=== PATIENT | female | born 1985 | race Caucasian/White ===

== ENCOUNTER → 2016-08-28 | Outpatient (CLI) | payer BC ==
--- NOTE | 2016-08-28 16:35 | FL ---
Hysterosalpingogram INDICATION: Infertility The procedure was explained to the patient, the risks complications benefits. All questions were answ ered. Written and verbal informed consent were obtained. Patient was placed on the fluoroscopy table in supine view. Speculum was placed. The vaginal vault was cleansed with Betadine. The catheter was placed through th e cervical os without difficulty. The balloon was inflated. Under fluoroscopic observation contrast w as administered. Multiple images were obtained. The catheter was withdrawn. Speculum was removed. The patient was placed in the prone view for single additional image. Discharge instructions were discussed with the patient. Patient will follow-up with her physician. Nikhil arthur tolerated procedure very well. FINDINGS: Fallopian tubes fill immediately with little resistance. There is free spill identified on the right with free spill also evident on the left a few seconds later. No loculated contrast is evid ent. The morphology of the uterus appears normal. Cervical canal appears normal. IMPRESSIONS: 1. Normal-appearing hysterosalpingogram.
== END | disposition home or self-care (01) ==
LOC: RADFLWHC 14:38
PROVIDERS: ATTEND Obstetrics & Gynecology
DX: N97.9 Female infertility, unspecified (principal)
CPT/HCPCS: 58340; 74740; Q9965

== ENCOUNTER → 2016-10-14 | Outpatient (CLI) | payer BC ==
[2016-10-14 13:29] LABS: Hepatitis B Surface Ag Index 0.08
[2016-10-14 13:46] LABS: Hepatitis C Virus IgG Index 0.01
[2016-10-14 13:49] LABS: Hepatitis C Virus IgG Ab Negative (Negative)
[2016-10-14 14:15] LABS: Follicle Stimulating Hormone 7.5 mIU/mL; Prolactin 11.4 ng/mL (3.0-18.6)
[2016-10-15 07:06] LABS: HIV-1/HIV-2 Ab Screen NONREAC (NON REAC)
[2016-10-16 05:54] LABS: Anti-Mullerian Hormone 2.28 ng/mL (<9.24)
[2016-10-19 11:28] LABS: Mis test requested (Blood) Act.Protein C Resist
== END | disposition home or self-care (01) ==
LOC: LABWHC1 12:01
PROVIDERS: ATTEND Obstetrics & Gynecology Reproductive Endocrinology
DX: Z31.49 Encounter for other procreative investigation and testing (principal)
CPT/HCPCS: 36415; 83001; 83002; 83520; 84146; 85307; 86762; 86780; 86803; 86850; 86900; 86901; 87340; 87389

== ENCOUNTER → 2020-04-03 | Outpatient (CLI) | payer BC ==
[2020-04-04 06:02] LABS: Luteinizing Hormone 10.2 mIU/mL; Prolactin 4.7 ng/mL (2.8-29.2)
[2020-04-04 06:03] LABS: Follicle Stimulating Hormone 12.2 mIU/mL
== END | disposition home or self-care (01) ==
LOC: LABMAIN 19:22
PROVIDERS: ATTEND Obstetrics & Gynecology Reproductive Endocrinology
DX: Z13.29 Encounter for screening for other suspected endocrine disorder (principal); Z13.21 Encounter for screening for nutritional disorder; N97.9 Female infertility, unspecified
CPT/HCPCS: 36415; 82306; 83001; 83002; 84146; 84443

== ENCOUNTER → 2020-07-20 | Outpatient (CLI) | payer BC | END | disposition home or self-care (01) | LOC: LABMAIN 01:22 | PROVIDERS: ATTEND Emergency Medicine | DX: Z53.9 Procedure and treatment not carried out, unspecified reason (principal) ==

== ENCOUNTER → 2020-08-16 | Outpatient (CLI) | payer BC ==
[2020-08-16 13:59] LABS: Follicle Stimulating Hormone 13.5 mIU/mL
== END | disposition home or self-care (01) ==
LOC: LABMAIN 02:02
DX: N97.9 Female infertility, unspecified (principal); Z13.29 Encounter for screening for other suspected endocrine disorder; Z13.21 Encounter for screening for nutritional disorder
CPT/HCPCS: 36415; 82306; 83001; 83002; 84443

== ENCOUNTER → 2021-03-11 | Outpatient (CLI) | payer BC | END | disposition home or self-care (01) | LOC: LABMAIN 04:28 | PROVIDERS: ATTEND Emergency Medicine | DX: Z20.822 Contact with and (suspected) exposure to COVID-19 (principal) | CPT/HCPCS: 87635 ==

== ENCOUNTER → 2021-06-24 | Outpatient (CLI) | payer BC | END | disposition home or self-care (01) | LOC: LABMAIN 06:11 | PROVIDERS: ATTEND Emergency Medicine | DX: Z20.822 Contact with and (suspected) exposure to COVID-19 (principal) | CPT/HCPCS: 87635 ==

== ENCOUNTER → 2021-06-29 | Outpatient (CLI) | payer BC, OTHER | END | disposition home or self-care (01) | LOC: LABWHC1 10:14 | PROVIDERS: ATTEND Emergency Medicine | DX: U07.1 COVID-19 (principal) | CPT/HCPCS: 87635 ==

== ENCOUNTER 2021-06-30 08:26 | Emergency (ER) | payer BC, OTHER ==
--- NOTE | 2021-06-30 08:36 | ED ---
URI HPI - General Chief Complaint: Upper Respiratory Infection Stated Complaint: covid+, wants infusion Time Seen by Provider: 06/30/21 08:30 Source: patient, RN notes reviewed Mode of arrival: ambulatory Limitations: no limitations - History of Present Illness Initial Comments: 36-year-old female presented from chief complaint covid 19 positive. Patient is an employee here and tested positive yesterday. Symptoms started around the seventh. Patient states that she has had some body aches, mild cough congestion no fever no chest pain or shortness of breath otherwise. Patient offers no complaints. - Related Data Allergies Allergy/AdvReac Type Severity Reaction Status Date / Time Penicillins Allergy Unknown Verified 06/30/21 08:27 Childhood Review of Systems ROS Statement: Those systems with pertinent positive or pertinent negative responses have been documented in the HPI. ROS Other: All systems not noted in ROS Statement are negative. Past Medical History Past Medical History: No Reported History History of Any Multi-Drug Resistant Organisms: None Reported Past Surgical History: No Surgical Hx Reported Additional Past Surgical History / Comment(s): laproscopic Past Psychological History: No Psychological Hx Reported Smoking Status: Former smoker Past Alcohol Use History: Occasional Past Drug Use History: None Reported General Exam Limitations: no limitations General appearance: alert, in no apparent distress Head exam: Present: atraumatic, normocephalic, normal inspection Eye exam: Present: normal appearance, PERRL, EOMI. Absent: scleral icterus, conjunctival injection, periorbital swelling ENT exam: Present: normal exam, normal oropharynx, mucous membranes moist Neck exam: Present: normal inspection, full ROM. Absent: tenderness, meningismus, lymphadenopathy Respiratory exam: Present: normal lung sounds bilaterally. Absent: respiratory distress, wheezes, rales, rhonchi, stridor Cardiovascular Exam: Present: regular rate, normal rhythm, normal heart sounds. Absent: systolic murmur, diastolic murmur, rubs, gallop, clicks Course Vital Signs 06/30/21 08:27 Temperature 98 F Pulse Rate 85 Respiratory 18 Rate Blood Pressure 120/73 O2 Sat by Pulse 98 Oximetry Medical Decision Making - Medical Decision Making Patient will receive monoclonal antibodies be discharged in stable condition. Disposition Clinical Impression: COVID-19 Disposition: HOME SELF-CARE Condition: Stable Instructions (If sedation given, give patient instructions): Coronavirus Disease 2019 (COVID-19) Additional Instructions: Please return to the Emergency Department if symptoms worsen or any other concerns. Is patient prescribed a controlled substance at d/c from ED?: No Referrals: Marie Callahan MD [Primary Care Provider] - 1-2 days Time of Disposition: 08:36
[2021-06-30] MEDS ORDERED: SODIUM CHLORIDE 0.9% 50 ML IVPB ONE (08:45)
[2021-06-30] MEDS ORDERED: BAMLANIVIMAB (EUA) 700 MG, ETESEVIMAB (EUA) 1,400 MG in SODIUM CHLORIDE 0.9% 50 ML IVPB ONE ×2 (09:00→09:30)
[2021-06-30 09:08] VITALS: RESP 16
[2021-06-30] MEDS ORDERED: SODIUM CHLORIDE 0.9% 500 ML 500 ML in EMPTY BAG 1 BAG IV PRN (09:21)
[2021-06-30] MEDS ORDERED: diphenhydrAMINE 50 MG/ML 1 ML VIAL IVP STA (09:32)
[2021-06-30] MEDS ORDERED: methylPREDNISolone SOD SUCCI 125 MG/2 ML VIAL IV STA (09:33)
[2021-06-30] MEDS ORDERED: ONDANSETRON 4 MG/2 ML VIAL IVP STA (09:39)
[2021-06-30 10:37] VITALS: BP 134/88; PULSE 66; TEMP 98
== END 2021-06-30 10:00 ==
LOC: EC 08:26 → PROCWHC3 08:26 → EDSTATUS 09:06 → PROCWHC3 10:00
DX: U07.1 COVID-19 (principal); Z88.0 Allergy status to penicillin; Z87.891 Personal history of nicotine dependence
CPT/HCPCS: 99283; 96360; 96375; 99202; J1200; J2930; J2405; J3490; M0245

== ENCOUNTER → 2025-02-08 | Outpatient (CLI) | payer BC ==
--- NOTE | 2025-02-08 09:57 | US ---
EXAMINATION TYPE: US abdomen complete DATE OF EXAM: 02/08/2025 COMPARISON: NONE CLINICAL INDICATION: Female, 39 years old with history of R10.11 RIGHT UPPER QUADRANT PAIN; Intermitt ent RUQ pain x 1 year, Patient is a social drinker, and has had a laparoscopic surgery in 2012 to rem ove adhesions from ovaries and liver area TECHNIQUE: Grayscale and color Doppler imaging of the abdomen was performed. FINDINGS: EXAM MEASUREMENTS: Liver Length: 12.0 cm Gallbladder Wall: 0.4 cm CBD: Obscured by bowel gas cm, color Doppler imaging was utilized to isolate the common bile duct fo r measurement. Spleen: 8.6 x 3.2 x 3.0 cm Right Kidney: 10.3 x 5.0 x 5.5 cm Left Kidney: 11.0 x 5.8 x 5.2 cm [employer]ER NOTES: Difficult exam due to overlying bowel gas Pancreas: Portions of the pancreatic head and tail are obscured by bowel gas shadowing. Visualized po rtions show no gross abnormality. Liver: In supine positioning, bowel gas obscures the liver. On le ft lateral decubitus position, shows no gross abnormality Gallbladder: Possible tiny 4 mm gallbladder wall polyp. Some fundal thickening could reflect adenomy omatosis. Both of these findings can be reassessed at follow-up. No shadowing stone is seen. Evidence for sonographic Castrejon's sign: No CBD: Obscured by overlying bowel gas Spleen: Limited visualization, otherwise wnl Right Kidney: Limited visualization, otherwise wnl, No hydronephrosis, calculi or masses seen Left Kidney: Limited visualization, otherwise wnl, No hydronephrosis, calculi or masses seen Upper IVC: Limited visualization, otherwise wnl Abd Aorta: wnl IMPRESSION: 1. Limited exam due to prominent overlying bowel gas. 2. Possible tiny 4 mm gallbladder wall polyp. Additionally, some focal fundal thickening could reflec t adenomyomatosis. Six-month follow-up ultrasound to reassess both of these findings. 3. No shadowing gallstones or biliary ductal dilatation. [facility], Workstation: [id number], 02/08/2025 9:55 AM
== END | disposition home or self-care (01) ==
LOC: RADUSWWP 08:34
DX: R10.11 Right upper quadrant pain (principal)
CPT/HCPCS: 76700